=== PATIENT | male | born 1985 | race Caucasian/White ===

== ENCOUNTER 2017-04-05 10:05 | Emergency (ER) | payer SELFPAY ==
[2017-04-05] MEDS ORDERED: LORazepam 2 MG/ML INJ IVP ONE ×2 (10:22→11:26)
[2017-04-05] MEDS ORDERED: NS 1,000 ML IV ONE ×2 (10:22→10:27)
--- NOTE | 2017-04-05 10:32 | EDPHY ---
H & P Smoking Status: Current every day smoker Time Seen by Provider: 04/05/17 10:14 HPI/ROS: CHIEF COMPLAINT: Vomiting, shaking HISTORY OF PRESENT ILLNESS: 32-year-old male presents to the emergency department with multiple episodes of vomiting. The patient drinks a pt of vodka daily and his last drink was yesterday. He has been vomiting multiple times yesterday and today. He feels extremely dehydrated. He has not urinated today. He also had episodes of watery diarrhea. He tells me that he vomits "a lot ". He states that he has had intermittent episodes of vomiting he over last several weeks and has not had a formed stool "in quite some time ". No fevers or chills. No chest pain or difficulty breathing. He has never had an alcohol withdrawal related seizure. He had "grand mal seizures" as a kid which she outgrew and does not take any prescribed medication for epilepsy or other seizure disorder. The patient went to see a dentist yesterday for an infected left upper tooth. He was prescribed amoxicillin yesterday, however he has not taken this medication. Denies melena. REVIEW OF SYSTEMS: Constitutional: No fever, no chills. Eyes: No double or blurry vision. ENT: No sore throat. Respiratory: No cough, no shortness of breath. Cardiac: No chest pain. Gastrointestinal: Vomiting as above. Abdominal pain, diarrhea. Genitourinary: No dysuria. Musculoskeletal: No neck or back pain. Skin: No rashes. Neurological: No headache. (Ashwini Egan) Past Medical/Surgical History: Alcoholism, seizures as a child (Ashwini Egan) Social History: Single (Ashwini Egan) Physical Exam: General Appearance: Alert, moderate distress. Anxious, tremulous. Girlfriend at bedside. Heart rate 128 initially. Eyes: Pupils equal and round. Extraocular motions are all intact. ENT: Mouth: Mucous membranes very dry. The left upper incisor reveals no evidence of abscess. Respiratory: No wheezing, rhonchi, or rales, lungs are clear to auscultation. Cardiovascular: Regular rate and rhythm. Gastrointestinal: Abdomen is soft. Diffuse tenderness with palpation. There is no rebound, guarding or masses noted. No CVA tenderness bilaterally. Neurological: Alert and oriented x 3, cranial nerves II through XII grossly intact Skin: Warm and dry, no rashes. Musculoskeletal: Nontender to palpate along the cervical, thoracic or lumbar spine. Neck is supple. Extremities: Full range of motion and no peripheral edema. Psychiatric: Patient is oriented X 3, there is no agitation. (Ashwini Egan) Constitutional: Initial Vital Signs Temperature (C) 36.4 C 04/05/17 10:09 Heart Rate 92 04/05/17 10:09 Respiratory Rate 18 04/05/17 10:09 Blood Pressure 160/100 H 04/05/17 10:09 O2 Sat (%) 97 04/05/17 10:09 O2 Delivery Mode Room Air Allergies/Adverse Reactions: No Known Allergies Allergy (Unverified 04/05/17 10:08) Home Medications: Medication Instructions Recorded Amoxicillin Trihydrate [Amoxil] 04/05/17 LORazepam [Ativan] 1 mg PO Q6-8PRN PRN #10 tab 04/05/17 Ondansetron Odt [Zofran Odt] 4 mg PO Q4PRN #8 tab 04/05/17 Medical Decision Making ED Course/Re-evaluation: 32-year-old male presents to the emergency department with diffuse abdominal pain and multiple episodes of vomiting. He is extremely tremulous upon arrival. He received 2 mg of IV Ativan and IV normal saline. Patient was feeling much better and less tremulous. He did not have any recurring episodes of vomiting in the emergency department. He was also given 4 mg of IV Zofran. Patient had elevated liver enzymes as well as elevated lipase of 480. Patient is tolerating p.o. fluids. He would like to be discharged home. The patient was also seen examined by Dr. Kia Atkins. He understands that he likely has alcoholic induced hepatitis. He was given primary care referral. He was encouraged to stop drinking. Patient was instructed to return to the emergency department if he developed recurring vomiting, abdominal pain, melena, or if he felt worse in any way. (Ashwini Egan) Differential Diagnosis: Including but not limited to alcoholic hepatitis, pancreatitis, dehydration, cyclical vomiting syndrome, GERD, peptic ulcer disease, gastroenteritis (Ashwini Egan) Other Provider: PHYSICIAN DOCUMENTATION: The patient was evaluated and managed by the Physician Medical Operations Supervisor and myself. I have reviewed the chart and agree with the findings and plan of care as documented. In addition, I examined the patient myself at 1120. History confirmed as recent alcohol intake. Physical findings as follows: No abdominal tenderness including negative Aquino sign and no McBurney's point tenderness. 1255: Doing better, less nausea, no vomiting, not tremulous right now. Labs reviewed, mild alcoholic hepatitis, clinically does not have acute pancreatitis. Tolerating oral fluids at the time of discharge. Warned no alcohol. I am the secondary supervising physician. (Kai Atkins) - Data Points Laboratory Results: Laboratory Results 04/05/17 10:27 04/05/17 10:27 04/05/17 04/05/17 10:27 10:27 WBC 9.11 10^3/uL 10^3/uL (3.80-9.50) RBC 5.24 10^6/uL 10^6/uL (4.40-6.38) Hgb 17.5 g/dL g/dL (13.7-17.5) Hct 49.1 % % (40.0-51.0) MCV 93.7 fL fL (81.5-99.8) MCH 33.4 pg pg (27.9-34.1) MCHC 35.6 g/dL g/dL (32.4-36.7) RDW 12.2 % % (11.5-15.2) Plt Count 248 10^3/uL 10^3/uL (150-400) MPV 9.9 fL fL (8.7-11.7) Neut % (Auto) 58.3 % % (39.3-74.2) Lymph % (Auto) 26.5 % % (15.0-45.0) [place] % (Auto) 12.5 % % (4.5-13.0) Eos % (Auto) 1.5 % % (0.6-7.6) Baso % (Auto) 0.8 % % (0.3-1.7) Nucleat RBC Rel Count 0.0 % % (0.0-0.2) Absolute Neuts (auto) 5.31 10^3/uL 10^3/uL (1.70-6.50) Absolute Lymphs (auto) 2.41 10^3/uL 10^3/uL (1.00-3.00) Absolute Monos (auto) 1.14 10^3/uL H 10^3/uL (0.30-0.80) Absolute Eos (auto) 0.14 10^3/uL 10^3/uL (0.03-0.40) Absolute Basos (auto) 0.07 10^3/uL 10^3/uL (0.02-0.10) Absolute Nucleated RBC 0.00 10^3/uL 10^3/uL (0-0.01) Immature Gran % 0.4 % % (0.0-1.1) Immature Gran # 0.04 10^3/uL 10^3/uL (0.00-0.10) Sodium 143 mEq/L mEq/L (134-144) Potassium 4.3 mEq/L mEq/L (3.5-5.2) Chloride 102 mEq/L mEq/L (97-110) Carbon Dioxide 19 mEq/l L mEq/l (22-31) Anion Gap 22 mEq/L H mEq/L (8-16) BUN 7 mg/dL mg/dL (7-23) Creatinine 0.9 mg/dL mg/dL (0.7-1.3) Estimated GFR > 60 Glucose 92 mg/dL mg/dL (70-100) Calcium 10.7 mg/dL H mg/dL (8.5-10.4) Phosphorus 2.4 mg/dL L mg/dL (2.5-4.5) Total Bilirubin 1.0 mg/dL mg/dL (0.1-1.4) Conjugated Bilirubin 0.5 mg/dL mg/dL (0.0-0.5) Unconjugated Bilirubin 0.5 mg/dL mg/dL (0.0-1.1) AST 493 IU/L H IU/L (17-59) ALT 335 IU/L H IU/L (21-72) Alkaline Phosphatase 125 IU/L IU/L (38-126) Total Protein 8.4 g/dL H g/dL (6.3-8.2) Albumin 5.1 g/dL H g/dL (3.5-5.0) Lipase 448 IU/L H IU/L (23-300) Medications Given: Discontinued Medications Sodium Chloride (Ns) 1,000 mls @ 0 mls/hr IV ONCE ONE PRN Reason: Wide Open Stop: 04/05/17 10:23 Last Admin: 04/05/17 10:25 Dose: 1,000 mls Sodium Chloride (Ns) 1,000 mls @ 0 mls/hr IV ONCE ONE PRN Reason: Wide Open Stop: 04/05/17 10:28 Last Admin: 04/05/17 10:44 Dose: 1,000 mls Lorazepam (Ativan Injection) 2 mg IVP EDNOW ONE Stop: 04/05/17 10:23 Last Admin: 04/05/17 10:25 Dose: 2 mg Lorazepam (Ativan Injection) 1 mg IVP EDNOW ONE Stop: 04/05/17 11:27 Last Admin: 04/05/17 11:37 Dose: 1 mg Ondansetron HCl (Zofran) 4 mg IVP EDNOW ONE Stop: 04/05/17 11:28 Last Admin: 04/05/17 11:37 Dose: 4 mg Departure - Departure Disposition: Home, Routine, Self-Care Clinical Impression: Alcoholic hepatitis Qualifiers: Ascites presence: without ascites Qualified Code(s): K70.10 - Alcoholic hepatitis without ascites Vomiting Qualifiers: Vomiting type: unspecified Vomiting Intractability: non-intractable Nausea presence: with nausea Qualified Code(s): R11.2 - Nausea with vomiting, unspecified Condition: Good Instructions: Acute Nausea and Vomiting (ED), Alcoholic Hepatitis (ED) Additional Instructions: Zofran as needed for symptoms of nausea or vomiting. Ativan as needed for symptoms of anxiety, cautioned drowsiness. Abdominal Pain: Return to the Emergency Department immediately for increasing pain, fever, vomiting, or if not completely better in 8-12 hours. Referrals: [facility] [Outside] - As per Instructions Prescriptions: LORazepam [Ativan] 1 mg PO Q6-8PRN PRN #10 tab PRN Reason: Anxiety Ondansetron Odt [Zofran Odt] 4 mg PO Q4PRN #8 tab
[2017-04-05 10:40] LABS: PLATELET COUNT 248 10^3/uL (150-400)
[2017-04-05] MEDS ORDERED: ONDANSETRON 4 MG/2 ML VIAL IVP ONE (11:27)
[2017-04-05 13:25] VITALS: BP 138/79; PULSE 87; RESP 19; TEMP 98.2; O2SAT 95
== END 2017-04-05 13:29 | disposition home or self-care (01) ==
DX: K70.10 Alcoholic hepatitis without ascites (principal); F17.200 Nicotine dependence, unspecified, uncomplicated
CPT/HCPCS: 96374; J2060; J2405

== ENCOUNTER 2017-06-21 15:43 | Emergency (ER) | payer SELFPAY ==
[2017-06-21] MEDS ORDERED: NS 1,000 ML IV ONE (16:11)
[2017-06-21] MEDS ORDERED: LORazepam 2 MG/ML INJ IVP ONE (16:12)
[2017-06-21] MEDS ORDERED: LORazepam 1 MG TAB PO ONE ×2 (16:13→16:51)
--- NOTE | 2017-06-21 16:15 | EDPHY ---
H & P Stated Complaint: anxiety , racing thoughts, denies SI Time Seen by Provider: 06/21/17 16:02 HPI/ROS: CHIEF COMPLAINT: anxiety, alcoholism HISTORY OF PRESENT ILLNESS: The patient is a 32-year-old man who comes to the emergency department with his mom stating that he wants help to stop drinking. He had his last drink about 16 hr ago. He is not showing withdrawal symptoms yet but is concerned he will and has underlying anxiety at baseline. He states that he drinks because of his anxiety. No recent fevers or infections. He also has a swollen right hand because he punched television last night. He is here requesting IV fluids , heart rate check and would [facility] REVIEW OF SYSTEMS: Constitutional: denies: chills, fever, recent illness, recent injury EENTM: denies: blurred vision, double vision, nose congestion Respiratory: denies: cough, shortness of breath Cardiac: denies: chest pain, irregular heart rate, lightheadedness, palpitations Gastrointestinal/Abdominal: denies: abdominal pain, diarrhea, nausea, vomiting, blood streaked stools Genitourinary: denies: dysuria, frequency, hematuria, pain Musculoskeletal: denies: joint pain, muscle pain Skin: denies: lesions, rash, jaundice, bruising Neurological: denies: headache, numbness, paresthesia, tingling, dizziness, weakness Hematologic/Lymphatic: denies: blood clots, easy bleeding, easy bruising Immunologic/allergic: denies: HIV/AIDS, transplant EXAM: GENERAL: Well-appearing, well-nourished and in no acute distress. HEAD: Atraumatic, normocephalic. EYES: Pupils equal round and reactive to light, extraocular movements intact, sclera anicteric, conjunctiva are normal. ENT: TMs normal, nares patent, oropharynx clear without exudates. Moist mucous membranes. NECK: Normal range of motion, supple without lymphadenopathy or JVD. LUNGS: Breath sounds clear to auscultation bilaterally and equal. No wheezes rales or rhonchi. HEART: Regular rate and rhythm without murmurs, rubs or gallops. ABDOMEN: Soft, nontender, normoactive bowel sounds. No guarding, no rebound. No masses appreciated. BACK: No CVA tenderness, no spinal tenderness, step-offs or deformities EXTREMITIES: Not tremulous, Right hand swelling laterally, normal range of motion. NEUROLOGICAL: Cranial nerves II through XII grossly intact. Normal speech, normal gait. 5/5 strength, normal movement in all extremities, normal sensation PSYCH: Normal mood, normal affect. SKIN: Warm, dry, normal turgor, no visible rashes or lesions. Source: Patient Exam Limitations: No limitations - Personal History Current Tetanus Diphtheria and Acellular Pertussis (TDAP): Yes - Medical/Surgical History Hx Asthma: No Hx Chronic Respiratory Disease: No Hx Diabetes: No Hx Cardiac Disease: No Hx Renal Disease: No Hx Cirrhosis: No Hx Alcoholism: No Hx HIV/AIDS: No Hx Splenectomy or Spleen Trauma: No Other PMH: anxiety - Family History Significant Family History: No pertinent family hx - Social History Smoking Status: Current every day smoker Alcohol Use: Heavy Drug Use: Marijuana Constitutional: Initial Vital Signs Temperature (C) 36.6 C 06/21/17 15:56 Heart Rate 111 H 06/21/17 15:56 Respiratory Rate 16 06/21/17 15:56 Blood Pressure 154/89 H 06/21/17 15:56 O2 Sat (%) 96 06/21/17 15:56 O2 Delivery Mode Room Air Allergies/Adverse Reactions: No Known Allergies Allergy (Unverified 04/05/17 10:08) Home Medications: Medication Instructions Recorded NK [No Known Home Meds] 06/21/17 Medical Decision Making - Diagnostics Imaging Results: Imaging Impressions Hand X-Ray 06/21/17 16:11 Impression: No acute fracture or foreign body. Imaging: Discussed imaging studies w/ manager call center Radiologist ED Course/Re-evaluation: We will x-ray the patient's hand and likely place him in a splint. I initially ordered IV fluids and Ativan however the patient is now declining IV. We will administer these p.o.. I will refer him to the [facility] with a Librium prepack. He and his mom feel happy with this plan. He denies suicidality. He denies hallucinations. 4:50 p.m. the patient is feeling much better. He is sipping water. His heart rate is still elevated. He is asking for another dose of Ativan. We will continue to observe. His mom has offered to take him to the [facility]. 5:20 p.m. the patient is feeling much better. His heart rate is normalized. He and his mom are eager to go. We will discharge them to the [facility]. Differential Diagnosis: Partial list of the Differential diagnosis considered include but were not limited to; anxiety, alcohol withdrawal, polysubstance abuse, hand fracture, contusion and although unlikely based on the history and physical exam, I also considered sepsis, suicidality, bipolar. I discussed these differential diagnoses and the plan with the patient as well as the usual and expected course. The patient understands that the diagnosis is provisional and that in medicine we are not always correct and that further workup is often warranted. Usual and customary warnings were given. All of the patient's questions were answered. The patient was instructed to return to the emergency department should the symptoms at all worsen or return, otherwise to followup with the physician as we discussed. - Data Points Medications Given: Discontinued Medications Chlordiazepoxide (Librium 25 Mg Prepack#6) 1 btl TAKEHOME EDNOW ONE Stop: 06/21/17 16:54 Last Admin: 06/21/17 17:39 Dose: 1 btl Lorazepam (Ativan) 1 mg PO EDNOW ONE Stop: 06/21/17 16:14 Last Admin: 06/21/17 16:17 Dose: 1 mg Lorazepam (Ativan) 1 mg PO EDNOW ONE Stop: 06/21/17 16:52 Last Admin: 06/21/17 16:53 Dose: 1 mg Departure - Departure Disposition: Home, Routine, Self-Care Clinical Impression: Alcohol abuse, Anxiety Contusion of right hand Qualifiers: Encounter type: initial encounter Qualified Code(s): S60.221A - Contusion of right hand, initial encounter Condition: Fair Instructions: Chlordiazepoxide (By mouth), Anxiety (ED) Additional Instructions: [facility] directly to [facility] Referrals: NONE *PRIMARY CARE P,. [Primary Care Provider] - As per Instructions
[2017-06-21] MEDS ORDERED: CHLORDIAZEPOXIDE 25MG PREPK#6 BTL TAKEHOME ONE (16:53)
[2017-06-21 17:49] VITALS: BP 152/96; PULSE 94; RESP 14; TEMP 98.1; O2SAT 100
--- NOTE | 2017-06-21 18:10 | ASMTCMCOM ---
CM Note CM Note Notes: Pt presented to the Emergency Department today requesting assistance for alcohol withdrawal. Pt to transfer to the [facility] for further management of symptoms. Met with pt to discuss current situation. SBIRT previously completed by ЮЛИЯ Cano. Pt admits to drinking a pint/day, every day. Pt smokes cigarettes and occasionally marijuana. Pt is accompanied by his mother. Pt states he has previously been to inpt rehab for alcohol and has previously attended AA meetings. Pt offered additional resources for outpt and inpt programs, as well as the current AA schedules. Resources provided. [facility] contacted the [facility] to alert them of discharge. CM available for any further issues or concerns. Date Signed: 06/21/2017 06:09 PM Electronically Signed By:Katrina Vences RN
== END 2017-06-21 17:50 | disposition home or self-care (01) ==
DX: S60.221A Contusion of right hand, initial encounter (principal); F41.9 Anxiety disorder, unspecified; F10.10 Alcohol abuse, uncomplicated; F17.200 Nicotine dependence, unspecified, uncomplicated; W22.8XXA Striking against or struck by other objects, initial encounter

== ENCOUNTER 2017-10-21 19:24 | Emergency (ER) | payer MEDICAID, OTHER ==
--- NOTE | 2017-10-21 19:33 | EDPHY ---
H & P Source: Patient Exam Limitations: No limitations - Medical/Surgical History Hx Asthma: No Hx Chronic Respiratory Disease: No Hx Diabetes: No Hx Cardiac Disease: No Hx Renal Disease: No Hx Cirrhosis: No Hx Alcoholism: No Hx HIV/AIDS: No Hx Splenectomy or Spleen Trauma: No Other PMH: anxiety - Social History Smoking Status: Current every day smoker Time Seen by Provider: 10/21/17 19:32 HPI/ROS: HPI: This is a 32-year-old male who presents with Chief Complaint: Left ankle injury at work Location: Left ankle posterior / lateral aspect Quality: Injury Duration: Friday Signs and Symptoms: No bleeding, no radiation, no numbness, no weakness, no tingling, no incontinence, no decreased range of motion, + swelling, + pain, no fever Timing: Acute Severity: 07/08 Context: Patient reports that he was working at [employer] with low top shoes when a roller wearing approximately 100 lb fell on his left lateral ankle. He reports that this injury occurred approximately 4 days ago. He reports that he has bruising and tenderness in the lateral posterior area of his left ankle. He has not tried any [id number] medications or applied ice. He is ambulatory without any deficits. He reports that he is able to walk without increase in pain. He denies any radiation, weakness, decreased range of motion. Modifying Factors: None Comment: ROS: see HPI Constitutional: No fever, no chills, no weight loss Eyes: No blurred vision Respiratory: No shortness of breath, no cough Cardiovascular: No chest pain Gastrointestinal: No nausea, no vomiting no diarrhea Genitourinary: No dysuria Extremities: No myalgias Neurologic: No weakness, no numbness Skin: No rashes Hematologic: No bruising, no bleeding MEDICAL/SURGICAL/SOCIAL HISTORY: Medical history: Anxiety Surgical history: Denies Social history: Current every day smoker CONSTITUTIONAL: Polite and cooperative adult white male, awake and alert, no obvious distress HEENT: Atraumatic and normocephalic. EXTREMITIES: 2/2 pulses, strength 5/5, left Ankle: Mild ecchymosis noted in the lateral posterior aspect in the cul de sac with mild tenderness to palpation ; Plantar flexion to 50, dorsiflexion to 20. Foot inversion to 35 degree. No tenderness/swelling Anterior talofibular ligament. No tenderness/swelling Calcaneofibular ligament, no tenderness/swelling posterior talofibular ligament , no tenderness/swelling posterior inferior tibiofibular ligament. Achilles tendon intact. DIP/PIP/MCP flexion/extension intact with good light touch sensation. no deformities, no clubbing, no cyanosis or edema. NEUROLOGICAL: no focal neuro deficits. GCS 15. Light touch sensation intact. SKIN: Warm and dry, no erythema. no rash. Good capillary refill. (Verena Felder) Constitutional: Initial Vital Signs Temperature (C) 36.8 C 10/21/17 19:31 Heart Rate 91 10/21/17 19:31 Respiratory Rate 16 10/21/17 19:31 Blood Pressure 156/99 H 10/21/17 19:31 O2 Sat (%) 95 10/21/17 19:31 O2 Delivery Mode Room Air Allergies/Adverse Reactions: No Known Allergies Allergy (Unverified 04/05/17 10:08) Home Medications: Medication Instructions Recorded NK [No Known Home Meds] 06/21/17 Medical Decision Making - Diagnostics Imaging Results: Imaging Impressions Ankle X-Ray 10/21/17 19:36 Impression: Negative. No acute fracture. Procedures: Procedure: Splint placement. A left ankle air stirrup splint was applied by the Emergency Room electrostatic powder coating technician. After application of the splint I returned and re-examined the patient. The splint was adequately immobilizing the joint and distal to the splint the patient's circulation and sensation was intact. (Verena Felder) ED Course/Re-evaluation: No signs of neurovascular compromise/tenting of skin/compartment syndrome/ extremities and joints examined above and below area of concern and are neurovascularly intact/Achilles injury X-ray my read shows no fracture, dislocation Placed in ankle stirrup splint advised supportive care. This patient was seen under the supervision of my secondary supervising physician. I evaluated care for this patient independently. Discussed this patient with Dr. Fisher. (Verena Felder) The patient was evaluated and managed by the physician library clerical assistant. I have reviewed this chart and I agree with the findings and plan of care as documented , as indicated by my signature. I am the secondary supervising physician. ( Sonia Marcano) Differential Diagnosis: Ankle injury differential diagnosis includes but is not limited to tibia fracture, fibula fracture, metatarsal fracture, LisFranc fracture, achilles tendon rupture, sprain. (Verena Felder) Departure - Departure Disposition: Home, Routine, Self-Care Clinical Impression: Left ankle injury Qualifiers: Encounter type: initial encounter Qualified Code(s): S99.912A - Unspecified injury of left ankle, initial encounter Contusion of ankle, left Qualifiers: Encounter type: initial encounter Qualified Code(s): S90.02XA - Contusion of left ankle, initial encounter Condition: Good Instructions: Ankle Sprain (ED), Contusion in Adults (ED), Ankle Stirrup Splint (ED) Additional Instructions: Wear the ankle stirrup splint until pain free. Take Tylenol 650 mg every 4 hours and/or Ibuprofen 600 mg every 8 hours with food as needed for pain. Apply ice for 30 minutes at a time; 2-3 times per day for the next 1-2 days. The x-rays obtained in the emergency department today demonstrate no evidence of an obvious fracture. Sometimes fractures are not obvious on the initial set of x-rays performed in the ED. For this reason, you should have repeat x-rays performed in 7-10 days if you are having any pain exclude the possibility of an occult fracture. Referrals: [facility],. [Clinic] - Follow Up Only If Needed Stand Alone Forms: Work Excuse
[2017-10-21 20:16] VITALS: BP 145/83
== END 2017-10-21 20:21 | disposition home or self-care (01) ==
DX: S90.02XA Contusion of left ankle, initial encounter (principal); F17.200 Nicotine dependence, unspecified, uncomplicated; W20.8XXA Other cause of strike by thrown, projected or falling object, initial encounter; Y92.69 Other specified industrial and construction area as the place of occurrence of the external cause; Y99.0 Civilian activity done for income or pay; Y93.89 Activity, other specified
CPT/HCPCS: L4350

== ENCOUNTER 2018-01-17 12:10 | Emergency (ER) | payer MEDICAID ==
[2018-01-17] MEDS ORDERED: IBUPROFEN 600 MG TAB PO ONE (12:22)
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
[2018-01-17 13:25] VITALS: BP 131/85
== END 2018-01-17 13:25 | disposition home or self-care (01) ==
DX: S52.041A Displaced fracture of coronoid process of right ulna, initial encounter for closed fracture (principal); Y93.9 Activity, unspecified

== ENCOUNTER 2018-02-14 13:41 | Emergency (ER) | payer MEDICAID ==
[2018-02-14] MEDS ORDERED: chlordiazePOXIDE 25 MG CAP PO ONE (14:48)
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
[2018-02-14] MEDS ORDERED: CHLORDIAZEPOXIDE 25MG PREPK#6 BTL TAKEHOME ONE ×2 (15:19→15:20)
[2018-02-14 15:26] VITALS: BP 135/78
== END 2018-02-14 15:26 | disposition home or self-care (01) ==
LOC: EEVIPCON 13:41
DX: Z04.1 Encounter for examination and observation following transport accident (principal); F10.10 Alcohol abuse, uncomplicated

== ENCOUNTER 2018-02-16 00:44 | Emergency (ER) | payer MEDICAID ==
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
[2018-02-16] MEDS ORDERED: NS 1,000 ML IV ONE (00:51)
[2018-02-16 01:11] LABS: PLATELET COUNT 244 10^3/uL (150-400)
[2018-02-16] MEDS ORDERED: CHLORDIAZEPOXIDE 25MG PREPK#6 BTL TAKEHOME ONE (04:11)
[2018-02-16 04:40] VITALS: BP 118/74
== END 2018-02-16 04:40 | disposition home or self-care (01) ==
LOC: EDUNIT#
DX: F10.920 Alcohol use, unspecified with intoxication, uncomplicated (principal); E86.9 Volume depletion, unspecified
CPT/HCPCS: G0480

== ENCOUNTER 2018-05-23 23:59 | Emergency (ER) | payer MEDICAID ==
[2018-05-24] MEDS ORDERED: NS 1,000 ML IV ONE ×2 (00:49→01:42)
[2018-05-24] MEDS ORDERED: ONDANSETRON 4 MG/2 ML VIAL ONE (01:04)
[2018-05-24] MEDS ORDERED: ONDANSETRON 4 MG/2 ML VIAL IVP ONE (01:05)
[2018-05-24 01:18] LABS: PLATELET COUNT 255 10^3/uL (150-400)
[2018-05-24] MEDS ORDERED: PROMETHAZINE HCL 25 MG/ML INJ IVP ONE (01:42)
[2018-05-24] MEDS ORDERED: LORazepam 2 MG/ML INJ IVP ONE (01:42)
[2018-05-24 03:25] VITALS: BP 129/75
--- NOTE | 2018-05-24 03:30 | EDPHY ---
H & P Stated Complaint: DETOXING VOMITING UP BLOOD, HX VARICES Time Seen by Provider: 05/24/18 00:42 HPI/ROS: HPI The patient presents with nausea, vomiting for the last several hours. The patient relapsed on alcohol about a week ago and has been drinking 1 pt of hard alcohol a day, last drink earlier this morning. He returned back to [place] where he met his mother who came in from out of town to help him with his alcoholism. They are staying at a hotel. There are several hours ago he began vomiting, this was initially clear though became dark in color and was concerning to them so they came in for further evaluation. He has mild epigastric abdominal pain that occurs when he vomits. He has not had a fever chills. He does not have any dark or bloody stools. He has been prescribed clonazepam by his primary care doctor for alcohol detox. He would like to return back to the hotel to uses medication.. REVIEW OF SYSTEMS 10 systems were reviewed and negative with the exception of the elements mentioned in the history of present illness. PMHx: Anxiety, PTSD, hypertension Soc Hx: Alcohol abuse, lives locally, here with his mother PHYSICAL General Appearance: Alert, no distress Eyes: Pupils equal and round no pallor or injection ENT, Mouth: Mucous membranes moist Respiratory: There are no retractions, lungs are clear to auscultation Cardiovascular: Regular rate and rhythm Gastrointestinal: Abdomen is soft and non-tender, no masses, bowel sounds normal Neurological: A&O, moves all extremities Skin: Warm and dry, no rashes Musculoskeletal: Neck is supple non tender Extremities: symmetrical, full range of motion Psychiatric: Patient is oriented X 3, there is no agitation - Personal History Current Tetanus/Diphtheria Vaccine: Yes Current Tetanus Diphtheria and Acellular Pertussis (TDAP): Yes - Medical/Surgical History Hx Asthma: No Hx Chronic Respiratory Disease: No Hx Diabetes: No Hx Cardiac Disease: No Hx Renal Disease: No Hx Cirrhosis: No Hx Alcoholism: Yes Hx HIV/AIDS: No Hx Splenectomy or Spleen Trauma: No Other PMH: anxiety, PTSD, ETOH ABUSE, HTN - Social History Smoking Status: Current every day smoker Constitutional: Initial Vital Signs Temperature (C) 36.8 C 05/24/18 00:08 Heart Rate 115 H 05/24/18 00:08 Respiratory Rate 20 05/24/18 00:08 Blood Pressure 161/114 H 05/24/18 00:08 O2 Sat (%) 96 05/24/18 00:08 O2 Delivery Mode Room Air Allergies/Adverse Reactions: No Known Allergies Allergy (Unverified 05/24/18 00:11) Home Medications: Medication Instructions Recorded Clonazepam 02/14/18 Medical Decision Making Differential Diagnosis: This is a 33-year-old male with history of alcohol abuse who presents after several days of drinking hard alcohol, 1 pt per day, last drink this morning who has developed nausea, vomiting, epigastric abdominal pain which has prevented him from taking the Klonopin which she has been prescribed to treat his alcohol withdrawal. Here, he is in mild alcohol withdrawal, he does have some ongoing vomiting which is dark in color. There is no veronique blood. The patient was given IV fluids and antiemetics. He received Ativan for his withdrawal symptoms. Labs were checked and were unremarkable. He was observed for several hours and had no ongoing vomiting and felt well enough to go home. He has a plan to return to a hotel that he is staying at with his mother. She will help monitor him for alcohol withdrawal and they have been prescribed benzodiazepines for this purpose by his primary care doctor. He will be discharged from the emergency department. - Data Points Laboratory Results: Laboratory Results 05/24/18 00:45 05/24/18 00:45 Medications Given: Discontinued Medications Sodium Chloride (Ns) 1,000 mls @ 0 mls/hr IV ONCE ONE; Wide Open PRN Reason: Protocol Stop: 05/24/18 00:50 Last Admin: 05/24/18 00:56 Dose: 1,000 mls Sodium Chloride (Ns) 1,000 mls @ 0 mls/hr IV EDNOW ONE; Wide Open PRN Reason: Protocol Stop: 05/24/18 01:43 Last Admin: 05/24/18 01:50 Dose: 1,000 mls Lorazepam (Ativan Injection) 1 mg IVP EDNOW ONE Stop: 05/24/18 01:43 Last Admin: 05/24/18 01:51 Dose: 1 mg Ondansetron HCl (Zofran) 4 mg IVP EDNOW ONE Stop: 05/24/18 01:06 Last Admin: 05/24/18 01:06 Dose: 4 mg Promethazine HCl (Phenergan) 12.5 mg IVP ONCE ONE Stop: 05/24/18 01:43 Last Admin: 05/24/18 01:51 Dose: 12.5 mg Departure - Departure Disposition: Home, Routine, Self-Care Clinical Impression: Vomiting, Alcohol withdrawal Condition: Good Instructions: Alcohol Withdrawal (ED) Additional Instructions: Please make sure to drink plenty of fluids and eat only bland foods until your feeling better. Please return to the ER if your worse in any way. Referrals: [facility],. [Clinic] - As per Instructions
== END 2018-05-24 03:40 | disposition home or self-care (01) ==
DX: R11.2 Nausea with vomiting, unspecified (principal); F10.239 Alcohol dependence with withdrawal, unspecified; E86.9 Volume depletion, unspecified
CPT/HCPCS: 96374; J2060; J2405; J2550